=== PATIENT | male | born 1980 | race American Indian/Alaskan Native ===

== ENCOUNTER 2017-05-17 08:24 | Outpatient (CLI) | payer MEDICAID | END 2017-05-17 08:25 | disposition critical access hospital (66) | LOC: EMS 08:24 | PROVIDERS: ATTEND Surgery | DX: Z76.89 Persons encountering health services in other specified circumstances (principal) | CPT/HCPCS: A0425; A0429 ==

== ENCOUNTER 2017-05-17 08:41 | Emergency (ER) | payer MEDICAID ==
[2017-05-17 08:46] VITALS: BP 142/95
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
== END 2017-05-17 10:07 | disposition left against medical advice (07) ==
LOC: EDBD → ED 08:41
DX: F22 Delusional disorders (principal); H66.90 Otitis media, unspecified, unspecified ear; Z53.29 Procedure and treatment not carried out because of patient's decision for other reasons; T40.1X3A Poisoning by heroin, assault, initial encounter; T43.623A Poisoning by amphetamines, assault, initial encounter; R07.9 Chest pain, unspecified; R53.83 Other fatigue; Y08.89XA Assault by other specified means, initial encounter; H74.01 Tympanosclerosis, right ear; Z59.0 Homelessness; J45.909 Unspecified asthma, uncomplicated; K21.9 Gastro-esophageal reflux disease without esophagitis; M79.7 Fibromyalgia; F17.210 Nicotine dependence, cigarettes, uncomplicated
CPT/HCPCS: 80053; 80320; 83690; 84484; 85025; 86140; 99282

== ENCOUNTER 2017-10-09 06:14 | Outpatient (CLI) | payer MEDICAID | END 2017-10-09 06:15 | disposition critical access hospital (66) | LOC: EMS 06:14 | PROVIDERS: ATTEND Surgery | DX: R10.9 Unspecified abdominal pain (principal); R11.2 Nausea with vomiting, unspecified; R19.7 Diarrhea, unspecified; R50.9 Fever, unspecified | CPT/HCPCS: A0425; A0427 ==

== ENCOUNTER 2017-10-09 06:30 | Emergency (ER) | payer MEDICAID ==
[2017-10-09] MEDS ORDERED: SODIUM CHLORIDE 0.9% 1,000 ML IV ONE ×3 (06:36→07:56)
[2017-10-09 07:00] LABS: LYMPHOCYTES # (AUTO) 0.4 10^3/uL (1.5-3.5); MEAN CORPUSCULAR HGB CONC 33.8 g/dL (32.0-36.0)
[2017-10-09 07:03] LABS: MUDS CUTOFF CONCENTRATIONS CUTOFF CONC BELOW:
[2017-10-09 07:03] LABS: BASOPHILS % (AUTO) 0.3 %; EOSINOPHILS % (AUTO) 0.1 %; HGB - HEMOGLOBIN 15.6 g/dL (14.0-18.0); LYMPHOCYTES % (AUTO) 3.5 %; MEAN CORPUSCULAR HEMOGLOBIN 29.9 pg (27.0-31.0); MEAN CORPUSCULAR VOLUME 88.5 fL (80.0-94.0); MEAN PLATELET VOLUME 8.7 fL (7.4-11.4); MONOCYTES # (AUTO) 0.3 10^3/uL (0.0-1.0); MONOCYTES % (AUTO) 2.5 %; NEUTROPHILS # (AUTO) 10.3 10^3/uL (1.5-6.6); NEUTROPHILS % (AUTO) 93.6 %; PLT - PLATELET COUNT 207 10^3/uL (130-450); RED BLOOD COUNT 5.21 10^6/uL (4.70-6.10); RED CELL DISTRIBUTION WIDTH 12.7 % (12.0-15.0); WHITE BLOOD COUNT 10.9 x10^3/uL (4.8-10.8)
[2017-10-09 07:09] LABS: BILIRUBIN,URINE NEGATIVE (NEGATIVE); GLUCOSE, URINE (UA) NEGATIVE (NEGATIVE); KETONES,URINE (UA) NEGATIVE (NEGATIVE); LEUKOCYTE ESTERASE, URINE NEGATIVE (NEGATIVE); NITRITE,URINE NEGATIVE (NEGATIVE); OCCULT BLOOD,URINE NEGATIVE (NEGATIVE); PROTEIN,URINE NEGATIVE (NEGATIVE); UROBILINOGEN,URINE 0.2 (NORMAL) E.U./dL (NORMAL)
[2017-10-09 07:09] LABS: ALBUMIN 3.6 g/dL (3.2-5.5); ALBUMIN/GLOBULIN RATIO 1.3 (1.0-2.2); BILIRUBIN,TOTAL 0.5 mg/dL (0.2-1.0); CALCIUM 9.3 mg/dL (8.5-10.3); CREATININE 0.7 mg/dL (0.6-1.2); TOTAL PROTEIN 6.3 g/dL (6.7-8.2)
[2017-10-09 07:10] LABS: CLARITY,URINE CLEAR (CLEAR)
[2017-10-09] MEDS ORDERED: KETOROLAC 60 MG/2 ML VIAL IVP STA (07:23)
--- NOTE | 2017-10-09 07:56 | XRAY Report ---
EXAM: CHEST RADIOGRAPHY EXAM DATE: 10/09/2017 07:49 AM. CLINICAL HISTORY: Cough and fever. Lethargy. COMPARISON: None. TECHNIQUE: 2 views. FINDINGS: The study is mildly underpenetrated. Lungs/Pleura: Lung volumes are mildly low. There is minimal left basilar airspace opacity. Right lung is clear. No interstitial abnormality. No pneumothorax or pleural fluid. Mediastinum: Heart and mediastinal contours are unremarkable. Other: None. IMPRESSION: Minimal left basilar airspace opacity which, given the low lung volumes, may represent at electasis or minimal pneumonitis. [facility] Referring Provider Line: [phone] SITE ID: [id number]
--- NOTE | 2017-10-09 07:56 | XRAY Preliminary Report ---
Exam: XR CHEST 2 VIEW X-RAY IMPRESSION: Minimal left basilar airspace opacity which, given the low lung volumes, may represent at electasis or minimal pneumonitis. [facility] SITE ID: [id number]
[2017-10-09 07:57] LABS: AMPHETAMINE SCREEN,URINE NEGATIVE (NEGATIVE); BENZODIAZEPINES SCREEN, URINE NEGATIVE (NEGATIVE); COCAINE SCREEN URINE NEGATIVE (NEGATIVE); METHADONE SCREEN, URINE NEGATIVE (NEGATIVE); METHAMPHETAMINES SCREEN, URINE NEGATIVE (NEGATIVE); OPIATE SCREEN, URINE NEGATIVE (NEGATIVE); OXYCODONE SCREEN, URINE NEGATIVE (NEGATIVE); PROPOXYPHENE SCREEN, URINE NEGATIVE (NEGATIVE); TRICYCLIC ANTIDEPRESSANT,URINE NEGATIVE (NEGATIVE)
[2017-10-09] MEDS ORDERED: cefTRIAXone 1 GM in SODIUM CHLORIDE 0.9% MINIBAG 100 ML IV STA (09:13)
--- NOTE | 2017-10-09 12:48 | ED Physician Documentation ---
History of Present Illness - Stated complaint Stated Complaint: ABD PX - Chief complaint Chief Complaint: Abd Pain - History obtained from History obtained from: Patient - History of Present Illness Timing: Last night - Additonal information Additional information: The patient is a 37-year-old male who presents with cough and fever with shortness of breath that started last night. He also complains of abdominal pain with one episode of vomiting last night. He reports generalized back pain with spasms. He denies dysuria. He has a history of gastroesophageal reflux disease, multiple sclerosis, and chronic back pain. His medications include gabapentin, cyclobenzaprine, and ranitidine. The patient denies any recent drugs or alcohol. Review of Systems Constitutional: reports: Fever, Myalgias, Fatigue Ears: denies: Tinnitus/ringing Nose: denies: Congestion Throat: denies: Sore throat Cardiac: denies: Chest pain / pressure Respiratory: reports: Dyspnea, Cough GI: reports: Abdominal Pain, Nausea, Vomiting, Diarrhea (Loose stool.) : denies: Dysuria Skin: denies: Rash Musculoskeletal: reports: Back pain (Generalized). denies: Extremity swelling Neurologic: reports: Headache. denies: Focal weakness, Numbness PD PAST MEDICAL HISTORY - Past Medical History Past Medical History: Yes Respiratory: Asthma Neuro: Seizure disorder GI: GERD, Hepatitis, Diverticulitis Musculoskeletal: Fibromyalgia, Rheumatoid arthritis, Other Other Past Medical History: MS - Past Surgical History Past Surgical History: Yes HEENT: Tonsil/Adenoidectomy - Present Medications Home Medications: Ambulatory Orders Medication Instructions Recorded Confirmed Cyclobenzaprine [Flexeril] 05/17/17 Gabapentin 05/17/17 Mirtazapine 05/17/17 raNITIdine [Zantac] 05/17/17 Azithromycin [Zithromax] 250 mg PO DAILY #6 tablet 10/09/17 - Allergies Allergies/Adverse Reactions: Allergies Allergy/AdvReac Type Severity Reaction Status Date / Time acetaminophen [From Tylenol] Allergy Hives Verified 10/09/17 07:13 ibuprofen Allergy Hives Verified 10/09/17 07:13 Penicillins Allergy Hives Verified 10/09/17 07:13 - Social History Does the pt smoke?: Yes Smoking Status: Current every day smoker Does the pt drink ETOH?: No Does the pt have substance abuse?: Yes Substance Use and Type: Heroin - Immunizations Immunizations: TDAP >10years/unknown - POLST Patient has POLST: No PD ED PE NORMAL - Vitals Vital signs reviewed: Yes (Febrile and tachycardic.) - General General: Alert and oriented X 3, Well developed/nourished, Other (Ill kempt, and drowsy.) - HEENT HEENT: Atraumatic, EOMI, Moist mucous membranes, Pharynx benign - Neck Neck: Supple, no meningeal sign, No bony TTP, No adenopathy, No JVD - Cardiac Cardiac: No murmur, Other (Rapid rate, regular rhythm.) - Respiratory Respiratory: Other (Faint crackles at the left base.) - Abdomen Abdomen: Soft, Non tender - Back Back: No CVA TTP, No spinal TTP - Derm Derm: No rash - Extremities Extremities: No edema, No calf tenderness / cord - Neuro Neuro: No motor deficit, No sensory deficit, Other (Drowsy but oriented 3, and responds appropriately to questions.) Eye Opening: Spontaneous Motor: Obeys Commands Verbal: Oriented GCS Score: 15 Results - Vitals Vitals: Vital Signs - 24 hr 10/09/17 10/09/17 10/09/17 07:57 08:52 09:56 Temperature Heart Rate 120 H 115 H 108 H Respiratory 18 18 16 Rate Blood Pressure 125/75 138/82 H 126/85 H O2 Saturation 96 98 96 10/09/17 10/09/17 10/09/17 11:00 12:05 12:51 Temperature 37.2 C Heart Rate 96 100 92 Respiratory 18 16 18 Rate Blood Pressure 131/83 H 125/62 118/60 O2 Saturation 96 96 96 Oxygen O2 Source Nasal cannula Oxygen Flow Rate 2 - Labs Labs: Laboratory Tests 10/09/17 10/09/17 10/09/17 06:15 06:15 06:15 WBC 10.9 H RBC 5.21 Hgb 15.6 Hct 46.1 MCV 88.5 MCH 29.9 MCHC 33.8 RDW 12.7 Plt Count 207 MPV 8.7 Neut # 10.3 H Lymph # 0.4 L [place] # 0.3 Eos # 0.0 Baso # 0.0 Absolute Nucleated RBC 0.01 Nucleated RBC % 0.1 Sodium 136 Potassium 3.5 Chloride 104 Carbon Dioxide 26 Anion Gap 6.0 BUN 8 Creatinine 0.7 Estimated GFR (MDRD) 128 Glucose 119 H Lactic Acid 1.5 Calcium 9.3 Total Bilirubin 0.5 AST 54 H ALT 104 H Alkaline Phosphatase 56 Total Protein 6.3 L Albumin 3.6 Globulin 2.7 Albumin/Globulin Ratio 1.3 Lipase 24 Urine Color Urine Clarity Urine pH Ur Specific [place] Urine Protein Urine Glucose (UA) Urine Ketones Urine Occult Blood Urine Nitrite Urine Bilirubin Urine Urobilinogen Ur Leukocyte Esterase Ur Microscopic Review Urine Culture Comments Urine Opiates Screen Ur Oxycodone Screen Urine Methadone Screen Ur Propoxyphene Screen Ur Barbiturates Screen Ur Tricyclics Screen Ur Phencyclidine Scrn Ur Amphetamine Screen U Methamphetamines Scrn U Benzodiazepines Scrn Urine Cocaine Screen U Cannabinoids Screen 10/09/17 06:55 WBC RBC Hgb Hct MCV MCH MCHC RDW Plt Count MPV Neut # Lymph # [place] # Eos # Baso # Absolute Nucleated RBC Nucleated RBC % Sodium Potassium Chloride Carbon Dioxide Anion Gap BUN Creatinine Estimated GFR (MDRD) Glucose Lactic Acid Calcium Total Bilirubin AST ALT Alkaline Phosphatase Total Protein Albumin Globulin Albumin/Globulin Ratio Lipase Urine Color YELLOW Urine Clarity CLEAR Urine pH 8.0 H Ur Specific [place] 1.020 Urine Protein NEGATIVE Urine Glucose (UA) NEGATIVE Urine Ketones NEGATIVE Urine Occult Blood NEGATIVE Urine Nitrite NEGATIVE Urine Bilirubin NEGATIVE Urine Urobilinogen 0.2 (NORMAL) Ur Leukocyte Esterase NEGATIVE Ur Microscopic Review NOT INDICATED Urine Culture Comments NOT INDICATED Urine Opiates Screen NEGATIVE Ur Oxycodone Screen NEGATIVE Urine Methadone Screen NEGATIVE Ur Propoxyphene Screen NEGATIVE Ur Barbiturates Screen NEGATIVE Ur Tricyclics Screen NEGATIVE Ur Phencyclidine Scrn NEGATIVE Ur Amphetamine Screen NEGATIVE U Methamphetamines Scrn NEGATIVE U Benzodiazepines Scrn NEGATIVE Urine Cocaine Screen NEGATIVE U Cannabinoids Screen POSITIVE H PD MEDICAL DECISION MAKING - ED course Complexity details: reviewed old records, reviewed results, re-evaluated patient , considered differential, d/w patient ED course: The patient's presentation is most consistent with left lower lobe pneumonia, and dehydration. Chest x-ray reveals faint airspace disease at the left base. His urine tox screen is negative, except for cannabinoids. I doubt endocarditis , and his exam does not suggest meningitis. Treatment in the emergency department included administration of normal saline 3 L IV, ceftriaxone 1 g IV, and ketorolac 30 mg IV. With the above treatment the patient's symptoms improved, as did his vital signs. He is being discharged with a prescription for Zithromax. I discussed with him the diagnosis, outpatient treatment and follow-up, as well as potentially worrisome signs or symptoms that should prompt reevaluation in the emergency department. Departure - Departure Disposition: 01 Home, Self Care Clinical Impression: Dehydration Pneumonia Qualifiers: Pneumonia type: due to unspecified organism Laterality: left Lung location: lower lobe of lung Qualified Code(s): J18.1 - Lobar pneumonia, unspecified organism Headache Qualifiers: Headache type: unspecified Headache chronicity pattern: acute headache Condition: Stable Instructions: ED Cephalgia Unspecified, ED Pneumonia Adult Follow-Up: [facility] [Provider Group] Prescriptions: Azithromycin [Zithromax] 250 mg PO DAILY #6 tablet Comments: Take Zithromax daily as prescribed. Drink plenty of fluids. You can use Aleve as needed for headache or fever. Follow up with primary physician within 1-2 weeks. Call to schedule appointment. Return to the emergency department if you develop increasing headache, persistent vomiting, fever with shaking chills, progressive shortness of breath , or otherwise worsening symptoms. Discharge Date/Time: 10/09/17 12:51
[2017-10-09 13:14] VITALS: BP 118/60
== END 2017-10-09 12:51 | disposition home or self-care (01) ==
LOC: EDUNIT# → ED 06:30
DX: E86.0 Dehydration (principal); J18.9 Pneumonia, unspecified organism; R51 Headache; J45.909 Unspecified asthma, uncomplicated; K21.9 Gastro-esophageal reflux disease without esophagitis; K75.9 Inflammatory liver disease, unspecified; M79.7 Fibromyalgia; M06.9 Rheumatoid arthritis, unspecified; F17.200 Nicotine dependence, unspecified, uncomplicated
CPT/HCPCS: 36415; 71046; 80053; 80306; 81001; 81003; 83605; 83690; 85025; 87086; 96361; 96365; 96375; 99284; 99285

== ENCOUNTER 2017-11-11 14:41 | Outpatient (CLI) | payer MEDICAID ==
--- NOTE | 2017-11-12 12:33 | XRAY Report ---
LUMBAR SPINE, THREE VIEWS: 11/11/2017 HISTORY: Back pain. COMPARISON: No comparisons. FINDINGS: Three views of the lumbar spine are performed. There is minimal anterolisthesis of L5 on S1. Vertebral bodies are otherwise unremarkable in height and alignment. Disk spaces are grossly well maintained. 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 IMPRESSION: MINIMAL ANTEROLISTHESIS OF L5 ON S1 DUE TO L5 PARS INTERARTICULARIS DEFECTS. OTHERWISE, NEGATIVE THREE VIEW LUMBAR SPINE. TD: 11/12/2017 12:13
--- NOTE | 2017-11-12 12:34 | XRAY Report ---
CERVICAL SPINE, THREE VIEWS: 11/11/2017 HISTORY: Neck pain. FINDINGS: Three views of the cervical spine are obtained. No comparisons. There is straightening of the normal cervical lordosis. The vertebral bodies are otherwise unremarkable in height and alignment. Disk spaces well maintained. No prevertebral soft tissue swelling. IMPRESSION: STRAIGHTENING OF THE NORMAL CERVICAL LORDOSIS. OTHERWISE, NEGATIVE THREE VIEW CERVICAL SPINE. TD: 11/12/2017 12:20
--- NOTE | 2017-11-12 12:36 | XRAY Report ---
THORACIC SPINE: 11/11/2017 HISTORY: Back pain. COMPARISON: 10/09/2017 chest x-ray. FINDINGS: Very subtle lower thoracic dextroscoliosis. Mild degenerative height loss of several adjacent mid thoracic vertebral bodies. Early degenerative disk space narrowing present. No bone destruction or compression fracture. IMPRESSION: THREE VIEW THORACIC SPINE SHOWS EARLY DEGENERATIVE CHANGES SIMILAR TO 10/09/2017. NO SUPERIMPOSED ACUTE FINDINGS NOTED. TD: 11/12/2017 12:22
== END 2017-11-11 14:42 | disposition home or self-care (01) ==
LOC: DI.N 14:41
PROVIDERS: ATTEND Family Medicine
DX: M53.80 Other specified dorsopathies, site unspecified (principal); M41.9 Scoliosis, unspecified; R56.9 Unspecified convulsions; B18.2 Chronic viral hepatitis C; R53.83 Other fatigue
CPT/HCPCS: 36415; 72040; 72072; 72100; 80053; 84443; 85025; 86317; 86704; 86803; 87340; 87389

== ENCOUNTER 2017-11-11 14:49 | Outpatient (CLI) | payer MEDICAID ==
[2017-11-11 19:11] LABS: BASOPHILS % (AUTO) 0.6 %; EOSINOPHILS # (AUTO) 0.1 10^3/uL (0.0-0.7); EOSINOPHILS % (AUTO) 1.4 %; HGB - HEMOGLOBIN 15.7 g/dL (14.0-18.0); LYMPHOCYTES # (AUTO) 2.1 10^3/uL (1.5-3.5); LYMPHOCYTES % (AUTO) 35.6 %; MEAN CORPUSCULAR HEMOGLOBIN 30.3 pg (27.0-31.0); MEAN CORPUSCULAR HGB CONC 33.3 g/dL (32.0-36.0); MEAN CORPUSCULAR VOLUME 90.8 fL (80.0-94.0); MEAN PLATELET VOLUME 9.3 fL (7.4-11.4); MONOCYTES # (AUTO) 0.4 10^3/uL (0.0-1.0); MONOCYTES % (AUTO) 7.2 %; NEUTROPHILS # (AUTO) 3.2 10^3/uL (1.5-6.6); NEUTROPHILS % (AUTO) 55.2 %; PLT - PLATELET COUNT 222 10^3/uL (130-450); RED BLOOD COUNT 5.19 10^6/uL (4.70-6.10); RED CELL DISTRIBUTION WIDTH 13.6 % (12.0-15.0); WHITE BLOOD COUNT 5.9 x10^3/uL (4.8-10.8)
[2017-11-11 19:16] LABS: ALBUMIN 3.9 g/dL (3.2-5.5); ALBUMIN/GLOBULIN RATIO 1.3 (1.0-2.2); BILIRUBIN,TOTAL 0.5 mg/dL (0.2-1.0); CALCIUM 8.7 mg/dL (8.5-10.3); CREATININE 0.7 mg/dL (0.6-1.2); TOTAL PROTEIN 6.9 g/dL (6.7-8.2)
[2017-11-12 12:56] LABS: HEPATITIS C ANTIBODY REACTIVE (NON-REACTIVE)
[2017-11-12 15:01] LABS: HEPATITIS B SURFACE ANTIGEN NON-REACTIVE (NON-REACTIVE)
[2017-11-12 15:15] LABS: HIV AG/AB 4TH GEN NON-REACTIVE (NON-REACTIVE)
[2017-11-13 15:23] LABS: HCV RNA QNT 5.28 Log IU/mL (NOT DETECTED); HCV RNA QUANT RT PCR 190000 IU/mL (NOT DETECTED)
== END 2017-11-11 14:50 | disposition home or self-care (01) ==
LOC: LAB.N 14:49
PROVIDERS: ATTEND Family Medicine
DX: R56.9 Unspecified convulsions (principal); B18.2 Chronic viral hepatitis C; R53.83 Other fatigue
CPT/HCPCS: 36415; 80053; 84443; 85025; 86317; 86704; 86803; 87340; 87389